=== PATIENT | male | born 1990 | race Caucasian/White ===

== ENCOUNTER 2024-12-26 20:22 | Emergency (ER) | payer BC ==
[~2024-12-26] VITALS: Ht 172.7 cm; Wt 81.6 kg
[2024-12-26] MEDS ORDERED: Ondansetron Hydrochloride 4 MG TAB SL ONE (20:55)
[2024-12-26] MEDS ORDERED: Acetaminophen/Hydrocodone 5 MG/325 MG TABLET PO ONE (20:55)
[2024-12-26] MEDS ORDERED: CLINDAMYCIN HCL 300 MG CAPSULE PO ONE (20:55)
[2024-12-26] MEDS ORDERED: CLINDAMYCIN HC300 MG PO (20:57)
== END 2024-12-26 21:14 | disposition home or self-care (01) ==
LOC: ED 20:22
DX: K04.7 Periapical abscess without sinus (principal); Z88.0 Allergy status to penicillin